=== PATIENT | female | born 1995 | race Caucasian/White ===

== ENCOUNTER → 2019-05-09 15:46 | Outpatient (BNVA) | payer SELFPAY | PROVIDERS: Family Provider Nurse Practitioner; PCP Nurse Practitioner; Visit Provider Nurse Practitioner | DX: Z30.40 Encounter for surveillance of contraceptives, unspecified (principal); N39.0 Urinary tract infection, site not specified; Z30.42 Encounter for surveillance of injectable contraceptive | CPT/HCPCS: 81003; 81025 ==

== ENCOUNTER → 2020-06-15 08:58 | Outpatient (BNVA) | payer SELFPAY | PROVIDERS: Family Provider Nurse Practitioner; PCP Nurse Practitioner; Visit Provider Registered Nurse | DX: Z30.42 Encounter for surveillance of injectable contraceptive (principal); R10.2 Pelvic and perineal pain | CPT/HCPCS: 81000; 81025 ==

== ENCOUNTER → 2022-07-29 09:18 | Outpatient (BNVA) | payer MEDICAID, SELFPAY | PROVIDERS: Family Provider Nurse Practitioner; PCP Nurse Practitioner; Visit Provider Nurse Practitioner Women's Health | DX: Z34.90 Encounter for supervision of normal pregnancy, unspecified, unspecified trimester (principal); R30.0 Dysuria | CPT/HCPCS: 81000; 87086 ==

== ENCOUNTER → 2022-08-10 14:37 | Outpatient (BNVA) | payer BC, SELFPAY | PROVIDERS: Family Provider Nurse Practitioner; PCP Nurse Practitioner; Visit Provider Obstetrics & Gynecology | DX: Z34.90 Encounter for supervision of normal pregnancy, unspecified, unspecified trimester (principal) | CPT/HCPCS: 76801 ==

== ENCOUNTER → 2022-08-12 14:09 | Outpatient (BNVA) | payer BC, MEDICAID, SELFPAY | PROVIDERS: Family Provider Nurse Practitioner; PCP Nurse Practitioner; Visit Provider Obstetrics & Gynecology | DX: Z34.90 Encounter for supervision of normal pregnancy, unspecified, unspecified trimester (principal) | CPT/HCPCS: 81000; 87086 ==

== ENCOUNTER → 2022-08-19 10:03 | Outpatient (BNVA) | payer BC, MEDICAID, SELFPAY | PROVIDERS: Family Provider Nurse Practitioner; Visit Provider Obstetrics & Gynecology | DX: Z34.00 Encounter for supervision of normal first pregnancy, unspecified trimester (principal); R10.2 Pelvic and perineal pain | CPT/HCPCS: 81000; 87086 ==

== ENCOUNTER → 2022-08-26 16:20 | Outpatient (BNVA) | payer BC, MEDICAID, SELFPAY | PROVIDERS: Family Provider Nurse Practitioner; Visit Provider Obstetrics & Gynecology | DX: Z34.90 Encounter for supervision of normal pregnancy, unspecified, unspecified trimester (principal) | CPT/HCPCS: 80307; 81000; 84443; 85027; 86592; 86762; 86803; 86850; 86900; 87086; 87340; 87491; 87591; 87661; 87806; 88175 ==

== ENCOUNTER → 2022-09-16 15:10 | Outpatient (BNVA) | payer BC, MEDICAID, SELFPAY | PROVIDERS: Family Provider Nurse Practitioner; Visit Provider Obstetrics & Gynecology | DX: Z34.92 Encounter for supervision of normal pregnancy, unspecified, second trimester (principal) | CPT/HCPCS: 81000; 87086 ==

== ENCOUNTER 2022-10-21 12:32 | Outpatient (CLI) | payer BC, MEDICAID, SELFPAY ==
--- NOTE | 2022-10-21 12:45 | US_ITS ---
WS: [email or web address] OBSTETRICAL ULTRASOUND COMPLETE HISTORY: Z34.90 - Encounter for supervision of normal , u... COMPARISON: 08/10/2022 Single intrauterine gestation in Cephalic presentation. Cervix is Closed and normal length. Cervical length is 3.6 cm. Normal amount of amniotic fluid surrounds the fetus. Placenta: Posterior, no previa or abruption. Placenta grade 1 Heart: 147 BPM. Poor evaluation of 4 chambers. Inadequate evaluation of the outflow tracts. Anatomy: Intracranial structures and spine are normal. kidneys, stomach and urinary bladd er are unremarkable. Abdominal wall, three-vessel cord and cord insertion site are normal. 4 extremities are present. profile: Unremarkable. Gender: Female measurements: BPD = 4.8 cm = 20w4d; 55th percentile HC = 18.3 cm = 20w4d; 51st percentile AC = 15.3 cm = 20w4d; 47th percentile FL = 3.4 cm = 20w5d; 54th percentile EFW: 367 g. Biometry is internally concordant. AGA by ultrasound: 20w4d ANATOLIY by ultrasound: 03/06/2023 Measurements are internally concordant. Normal growth since the prior ultrasound. US/US OB >= 14 weeks fetus [id number] IMPRESSION: 1. Single intrauterine gestation of 20w4d with an ANATOLIY of 03/06/2023. Appropria te growth since the prior ultrasound. 2. With the exception of the heart the anatomy is normal. Recommend reevaluati on of the heart to include 4 chambers and outflow tracts.
== END 2022-10-21 12:33 | disposition home or self-care (01) ==
PROVIDERS: Visit Provider Obstetrics & Gynecology
DX: Z34.92 Encounter for supervision of normal pregnancy, unspecified, second trimester (principal)
CPT/HCPCS: 76805

== ENCOUNTER 2022-12-23 13:20 | Outpatient (CLI) | payer BC, MEDICAID, SELFPAY ==
--- NOTE | 2022-12-23 14:08 | US_ITS ---
WS: [id number] ULTRASOUND OB FOCUSED HISTORY: Reevaluate four-chamber heart and outflow tracts. COMPARISON: 10/21/2022 Single intrauterine gestation in vertex position. heart rate at 141 BPM. Normal appearance of the four-chamber heart. Normal situs and axis. LVOT and RVOT are better seen on today's examination. Multiple images were obtained. In totality the outflow tracts appear normal. IMPRESSION: Normal reevaluation of four-chamber heart and outflow tracts.
== END 2022-12-23 13:21 | disposition home or self-care (01) ==
LOC: RAD 13:22
PROVIDERS: PCP Family Medicine; Visit Provider Family Medicine
DX: Z34.02 Encounter for supervision of normal first pregnancy, second trimester (principal)
CPT/HCPCS: 76816

== ENCOUNTER 2023-01-27 13:48 | Outpatient (CLI) | payer BC, MEDICAID, SELFPAY ==
--- NOTE | 2023-01-27 13:57 | US_ITS ---
WS: [id number] LIMITED OBSTETRICAL ULTRASOUND HISTORY: GESTATIONAL DIABETES COMPARISON: 12/23/2022, 08/10/2022 Presentation: Vertex Cervix: Closed and normal length. Placenta: Posterior, no previa. Grade: 1 HEART: FHR of 157 BPM. measurements: BPD = 8.4 cm = 34w0d; 36% HC = 30.6 cm = 34w1d; 12% AC = 28.7 cm = 32w5d; 11% FL = 6.5 cm = 33w4d; 21% DESMOND: 10.7 cm EFW: 2146 g; 36% AGA by ultrasound: 33w4d ANATOLIY by ultrasound: 03/13/2023 Fetus is measuring nearly 2 weeks smaller in size than expected based upon the first trimester ultras ound. The abdominal circumference is also at the 11th percentile. BPD is at the 36 percentile. As com pared to the prior ultrasound from 10/21/2022 the biometry percentiles are trending low. IMPRESSION: 1. Single intrauterine gestation of 33 weeks 4 days with an EDC of 03/13/2023. 2. Fetus is measuring just under 2 weeks smaller by biometry as expected according to the first trim ana ultrasound. 3. Biometry measurements are trending low as compared to the prior ultrasound of 10/21/2022. Abdominal circumference at the 11th percentile. Early changes of restricted growth are suspected. 4. Estimated weight remains at the 36 percentile. 5. Normal amniotic fluid.
== END 2023-01-27 13:49 | disposition home or self-care (01) ==
LOC: RAD 13:48
PROVIDERS: PCP Family Medicine; Visit Provider Family Medicine
DX: O24.419 Gestational diabetes mellitus in pregnancy, unspecified control (principal); Z3A.33 33 weeks gestation of pregnancy
CPT/HCPCS: 76816

== ENCOUNTER 2023-02-13 09:15 | Outpatient (CLI) | payer BC, MEDICAID, SELFPAY ==
[2023-02-13] VITALS (7 sets, daily range): BP systolic 107–135; BP diastolic 68–84; PULSE 77–88; RESP 16; TEMP 35.8; BMI 28.7
--- NOTE | 2023-02-13 09:33 | US_ITS ---
WS: [email or web address] BIOPHYSICAL PROFILE AND LIMITED OB. HISTORY: vaginal bleeding COMPARISON: 01/27/2023 Presentation: Cephalic. Cervix: Closed and normal length. Placenta: Posterior and fundal. Grade: 2 HEART: FHR of 144BPM. profile: Parameters are as follows: Breathin Movement: 2 Tone: 2 Fluid volume: 2 Normal amniotic fluid index, 11.9 cm. IMPRESSION: 1. Biophysical profile score: 8/8. 2. Normal amniotic fluid volume. 3. Grade 2 placenta.
[2023-02-13 13:15] LABS: Bilirubin Urine Neg (Negative); Blood Urine 3+ (Negative); Glucose Urine UA Norm (Normal); Ketones Urine Negative (Negative); Nitrate Urine Negative (Negative); Protein Urine 1+ (Negative); Specific Gravity, Urine 1.005 (1.005-1.030); Urine Appearance Hazy (CLEAR); Urine Color Yellow (Yellow); Urobilinogen Urine Neg (Negative); pH Urine 7 (5-7)
[2023-02-13 13:16] LABS: Add Urine Culture? Yes; Add Urine Microscopic? YES; Bacteria Urine TRACE /hpf; Leukocyte Esterase Urine 1+ (Negative)
[2023-02-13 13:22] LABS: Squamous Epithelial Cell Urine 0-4 /hpf (0-5); WBC Urine 15-25 /hpf (0-5)
[2023-02-13 13:25] LABS: RBC Urine TOO NUMEROUS TO CNT /hpf (0-2)
== END 2023-02-13 13:39 | disposition home or self-care (01) ==
LOC: OPOB 09:20 → OBGYN 09:26
PROVIDERS: PCP Family Medicine; Visit Provider Family Medicine
DX: O46.90 Antepartum hemorrhage, unspecified, unspecified trimester (principal); Z3A.00 Weeks of gestation of pregnancy not specified
CPT/HCPCS: 59025; 76819; 81001; 87081; 87086; 99211

== ENCOUNTER 2023-02-18 13:30 | Inpatient (IN) | payer BC, MEDICAID, SELFPAY ==
[2023-02-18] VITALS (101 sets, daily range): BP systolic 102–140; BP diastolic 55–91; PULSE 57–98; RESP 15–18; TEMP 36.6–36.7; O2SAT 89–100; BMI 28.1
--- NOTE | 2023-02-18 12:32 | USR_ITS ---
PROCEDURE INFORMATION: Exam: US , Limited Exam date and time: 02/18/2023 1:17 PM Age: 27 years old Clinical indication: Other: Pain and bleeding; ; Additional info: Non reassuring fht TECHNIQUE: Imaging protocol: Real-time ultrasound of the maternal uterus with image documentation. Exam focused on the clinical indication. COMPARISON: US OB BPP NST [id number] 02/13/2023 10:01 AM FINDINGS: Gestation: Single live intrauterine gestation. heart rate: 122 bpm. presentation: Cephalic presentation. Placenta: Grade 3 placenta. Heterogeneously hypoechoic nonvascular retroplacental mass measuring up to 7 cm diameter suspicious for placental abruption and retroplacental hemorrhage. Amniotic fluid: A small volume of amniotic fluid is present. Amniotic fluid volume is not well evaluated. Amniotic fluid index: DESMOND is not measured. MATERNAL: Cervix: The cervix is obscured by posterior acoustic shadowing. US/US OB BPP NST [id number] IMPRESSION: 1. Suspect placental abruption. 2. Single live intrauterine gestation. Cephalic presentation.
[2023-02-18 13:41] LABS: Basophils # 0.1 10^3/uL (0.0-0.1); Basophils % 0.3 %; Eosinophils % 0.1 %; Hematocrit 37.8 % (36-47); Lymphocytes # 1.6 10^3/uL (0.8-4.8); Lymphocytes % 8.4 %; Mean Corpuscular HGB Conc 34.7 g/dL (30-55); Mean Corpuscular Hemoglobin 32.1 pg (27-33); Mean Corpuscular Volume 92.6 fl (85-98); Mean Platelet Volume 12.7 fL (7.4-10.4); Monocytes # 0.8 10^3/uL (0.2-0.9); Neutrophils # 16.42 10^3/uL (1.8-7.7); Neutrophils % 85.5 %; Nucleated Red Blood Cells % 0 %; Platelet Count 242 10^3/cmm (157-399); Red Blood Count 4.08 10^6/uL (3.85-5.65); Red Cell Distribution Width 13.2 % (12.1-15.1); White Blood Count 19.19 10^3/uL (3.29-11.43)
[2023-02-18] MEDS: ceFAZolin 2,000 MG in sodium chloride 0.9% (plus) 50 ML 100 MG IV (13:55)
[2023-02-18] MEDS: lactated ringers 1,000 ML 999 ML IV (13:55)
--- NOTE | 2023-02-18 14:01 | PM.OBGYHP ---
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 She reports good movement. Some intermittent vaginal spotting. Denies LOF. Family history significant for malignant hyperthermia. Present Details : 1 Para: 0 Labs Blood type OB HPI: B (+) positive Rubella: Immune RPR: Negative GBS: Negative HBsAG: Negative Review of Systems Const: Denies: fever(s) or chills Card: Denies: chest pain or palpitations Resp: Denies: dyspnea : Reports: vaginal bleeding Musc: Reports: back pain Medications/Allergies Home Medications Medication Instructions Recorded Confirmed Last Taken Type prenat.vits,juan,yuo-vdnc-bzbng 1 tab PO DAILY 07/29/22 02/13/23 02/12/23 22:00 History ondansetron HCl 4 mg tablet 4 mg PO Q6H #30 tabs 08/26/22 02/13/23 Unknown Rx promethazine 25 mg tablet 25 mg PO Q6H PRN nausea and 08/26/22 02/13/23 Unknown Rx vomiting #30 tabs cetirizine 10 mg tablet See Rx Instructions .Route 02/17/23 Unknown Rx .COMPLEX #30 tabs Allergies Allergy/AdvReac Type Severity Reaction Status Date / Time naproxen AdvReac Intermediate ADR-Abdominal Verified 09/16/22 15:03 Pain 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: Medical History No pertinent past medical history neghx: htn,dm,thyroid,dvt/pe PCP: none Surgical History History of dental surgery History of tonsillectomy and adenoidectomy Family History Grandmother Thyroid condition maternal Heart disease maternal Denies family history of Colon cancer Ovarian cancer Diabetes Hyperlipidemia Breast cancer Hypertension Uterine cancer Stroke Supplemental PFSH Information: Family history significant for history of malignant hyperthermia History History History 1 Term 0 Miscarriages/Ectopic Living Children Care ANATOLIY Calculator Estimated Delivery Date Method Current WG Current Estimate 03/07/23 LMP (Uncertain) 37w 4d Other Estimates 03/01/23 Ultrasound #1 38w 3d Specific Issues/Plans NICOTINE USE Vitals/I&O/Wt Last Vital Signs Pulse 83 02/18/23 12:45 Resp 16 02/18/23 12:32 BP 120/69 02/18/23 12:45 Weight last 48 hrs Weight 149 lb Physical Exam Const: COMMON NORMALS: healthy appearing and alert OTHER: in pain with contractions Resp: COMMON NORMALS: normal respiratory effort and clear to auscultation bilaterally Cardio: COMMON NORMALS: regular rate, regular rhythm, S1 normal heart sound present and S2 normal heart sound present Extremity: OTHER: No LE edema Data 02/18/23 12:50 Results Labs OB ([facility]): Obstetrics US 01/27/23 Obstetrics US/Biophysical Profile 02/18/23 Blood Type B Positive 08/26/22 Antibody Screen Negative 08/26/22 Hct 37.8 % (36-47) 02/18/23 Hgb 13.10 g/dL (11.27-16.99) 02/18/23 Rho(D) Type Positive 08/26/22 Plt Count 242 10^3/cmm (157-399) 02/18/23 Hep Bs Antigen Non-reactive (Nonreactive) 08/26/22 Hepatitis C Antibody Non-reactive (Nonreactive) 08/26/22 Rubella IgG Antibody 26.7 IU/mL (0.0-10.0) H 08/26/22 RPR Nonreactive (Nonreactive) 08/26/22 HIV 1&2 Ab & HIV 1 Ag Non-reactive (Non-Reactiv) 08/26/22 TSH 1.88 uIU/mL (0.27-4.20) 08/26/22 Cystic Fibrosis Screen Negative 08/26/22 HCG, Qual Negative (Negative) 06/15/20 Urine Opiates Screen Negative ng/mL (Negative) 08/26/22 Ur Barbiturates Screen Negative ng/mL (Negative) 08/26/22 Ur Phencyclidine Scrn Negative ng/mL (Negative) 08/26/22 Ur Amphetamines Screen Negative ng/mL (Negative) 08/26/22 U Benzodiazepines Scrn Negative ng/mL (Negative) 08/26/22 Urine Cocaine Screen Negative ng/mL (Negative) 08/26/22 U Marijuana (THC) Screen Negative ng/mL (Negative) 08/26/22 Micro Urine Specimen 02/13/23 Pap Smear Interpret See note 08/26/22 A&P Assessment and plan (1) Term : (2) Placental abruption: (3) Gestational diabetes mellitus: Plan 27yo at 37w4d presenting with suspected placental abruption. Admit patient. FHT intermittent category II. With suspected significant placental abruption and category II FHT I have contacted backup Dr. eRyna for evaluation for primary . CBC, Type and Screen. Attestations Medical Necessity Statement*: [facility] Hospitalist [facility] hospital stay will require greater than 2 midnights for delivery and care. Coding Level of Care Code Acute Code for Chg Fwd Diagnoses Term Z34.90 Placental abruption O45.90 Gestational diabetes mellitus O24.419
[2023-02-18] MEDS: citric acid-sodium citrate 30 mL UDC PO (14:06)
[2023-02-18] MEDS: metoclopramide 5 mg/mL SDV 2 mL 10 MG IV (14:06)
[2023-02-18] MEDS: famotidine 20 mg/2 mL INJ IVP (14:06)
--- NOTE | 2023-02-18 14:20 | P.CONIM_ITS ---
Providers/Reason For Consult 2 Consulting Physician/Specialty*: Family Practice/OB Reason for Consult*: Non-reassuring heart tones with need for primary low-transverse section Attending Physician: Jessica Teixeira DO Primary Care Provider: Jessica Teixeira DO History of Present Illness History of Present Illness Mell Barrientos is a 27 year old GP0 at 37.5 weeks gestation by 11-week ultrasound with uncertain LMP. Her was complicated by gestational diabetes, IUGR on last ultrasound, smoker. The patient presented to labor and delivery today due to increasing contractions and low back pain with some mild spotting. The patient had an ultrasound done that was suspicious for placental abruption. heart tones were nonreassuring with intermittent decelerations. For this reason I was contacted for consultation for section. The patient denies any chest pains, shortness of breath, nausea, vomiting. She denies any leakage of fluid. Medications/Allergies Home Medications Medication Instructions Recorded Confirmed Last Taken Type prenat.vits,juan,whn-hafa-icpzg 1 tab PO DAILY 07/29/22 02/13/23 02/12/23 22:00 History ondansetron HCl 4 mg tablet 4 mg PO Q6H #30 tabs 08/26/22 02/13/23 Unknown Rx promethazine 25 mg tablet 25 mg PO Q6H PRN nausea and 08/26/22 02/13/23 Unknown Rx vomiting #30 tabs cetirizine 10 mg tablet See Rx Instructions .Route 02/17/23 Unknown Rx .COMPLEX #30 tabs Allergies Allergy/AdvReac Type Severity Reaction Status Date / Time naproxen AdvReac Intermediate ADR-Abdominal Verified 09/16/22 15:03 Pain Current Medications Generic Name Dose Route Start Last Admin Trade Name Freq PRN Reason Stop Dose Admin Lactated Ringer's 1,000 mls @ 999 mls/hr 02/18/23 13:00 02/18/23 13:55 Lactated Ringers IV 999 mls/hr .Q1H1M SHAHLA Administration PFSH Acute 2 PFSH: Medical History No pertinent past medical history neghx: htn,dm,thyroid,dvt/pe PCP: none Surgical History History of tonsillectomy and adenoidectomy History of dental surgery Family History Grandmother Thyroid disease maternal Heart disease maternal Denies family history of Colon cancer Ovarian cancer Diabetes Hyperlipidemia Breast cancer Hypertension Uterine cancer Stroke Social History (Updated 02/18/23 @ 16:02 by Yimi Reyna MD) Smoking and tobacco/nicotine status: current every day tobacco/nicotine user Female Reproductive History: : 1 Vitals/I&O/Wt Last Vital Signs Pulse 86 02/18/23 14:02 Resp 16 02/18/23 12:32 BP 140/91 02/18/23 14:02 Weight last 48 hrs Weight 149 lb Physical Exam 2 Narrative: General: Alert and oriented x3 Mouth: Mucous membranes moist, pharynx non-erythematous Cardiac: Regular rate and rhythm without murmurs Lungs: Clear to auscultation bilaterally without wheezes, crackles or rhonchi Abdomen: Soft, mild tenderness diffusely, fundus small for gestational age Extremities: Trace edema in the bilateral lower extremities Data 02/18/23 12:50 A&P Assessment and plan (1) Placental abruption: Clinically the patient has findings concerning for placental abruption. Her ultrasound is highly consistent for this. We do not have the official radiology report back yet, however with the nonreassuring heart tones I am in agreement that we should proceed with a primary low-transverse section as she is only 2 cm dilated and primigravida. I would be concerned that there could be a significant risk for proceeding with vaginal delivery based on these findings. This was discussed with the patient and her significant other and they are in agreement with proceeding with a primary low-transverse section. All questions were answered. Qualifiers: Trimester: third trimester Qualified Code(s): O45.93 - Premature separation of placenta, unspecified, third trimester (2) Gestational diabetes mellitus: Qualifiers: Gestational diabetes mellitus control: diet-controlled Trimester: third trimester Qualified Code(s): O24.410 - Gestational diabetes mellitus in , diet controlled (3) Tobacco use in : Plan Please see Dr. Teixeira's note for full details. Coding Level of Care Code Acute Code for Chg Fwd Diagnoses Placental abruption in third trimester O45.93 Trimester: third trimester Diet controlled gestational diabetes mellitus (GDM) in third trimester O24.410 Gestational diabetes mellitus control: diet-controlled Trimester: third trimester Tobacco use in O99.330
--- NOTE | 2023-02-18 16:06 | PM.OP ---
Operative Report Date of procedure: February 18, 2023 Pre-op diagnosis: 1. Intrauterine at 37.5 weeks gestation by LMP. 2. Gestational diabetes diet controlled 3. Borderline IUGR 4. Clinical suspicion for placental abruption with nonreassuring heart tones Post-op diagnosis: 1. Intrauterine status post primary low-transverse section at 37.5 weeks gestation by LMP. 2. Gestational diabetes diet controlled 3. Small for gestational age infant 4. Placental abruption based on intraoperative findings 5. Smoker 6. Delivery of infant female weighing 4 pounds 2 ounces with Apgars of 8 and 9 Post-op findings: Couvelaire uterus with blood clots covering approximately 35 to 40% of the placental surface and blood noted under the membrane of the chorionic plate. Blood-stained amniotic fluid noted. Small for gestational age infant Intact placenta Procedure done: Primary low transverse section Specimens removed/disposition: Placenta sent to pathology Surgeon: Yimi Reyna MD Software Systems Engineer: Dr Jessica Teixeira Estimated blood loss (mL): 450 Complications: None Brief History: Mell Brarientos is a 27 year old G1 now P1 status post primary low-transverse section at 37.5 weeks gestation by 11-week ultrasound with uncertain LMP. Her was complicated by gestational diabetes, IUGR on last ultrasound, smoker. The patient presented to labor and delivery today due to increasing contractions and low back pain with some mild spotting. The patient had an ultrasound done that was highly suspicious for placental abruption. No official radiologic report was back yet but heart tones were nonreassuring with intermittent decelerations. For this reason I was contacted for consultation for section. I discussed the risk and benefits with the patient and she agreed to proceed with a primary low-transverse section due to the above. Procedure: After informed consent was obtained, the patient was taken to the operating room and the patient was prepped and draped in a normal sterile fashion in the dorsal supine position.? A spinal was placed and adequate anesthesia was obtained.? At 1438 on 02/18/2023 a Pfannenstiel skin incision was made and carried through to the underlying layer of fascia using a scalpel.? The fascial incision was then extended laterally using curved Mayos.? The fascia was then grasped with Ceci clamps and the underlying rectus muscles were dissected off taking care to avoid injury to the underlying tissues.? The peritoneum was entered bluntly with one digit.? It was then bluntly.? The bladder blade was placed and the vesicouterine peritoneum was well below the lower uterine segment of the uterus.? The uterine incision was made in the lower uterine segment in a transverse fashion with the scalpel at 1442.? The amniotic membrane was entered bluntly and a moderate amount of blood stained fluid was noted.? Uterine pressure was placed and the infant's head delivered without complication at 1442 on 02/18/2023.? There was no nuchal cord.? The mouth and nose were suctioned.? The rest of the infant delivered without difficulty.? The took a breath immediately upon delivery.? The cord was clamped and cut and the was handed to the awaiting pediatric nurses as well as Dr. Campbell.? The placenta was then manually expressed.? Multiple large clots were noted upon delivery of the placenta. Couvelaire uterus was noted as well. The uterus was exteriorized from the abdomen.? A wet lap was used to clear the uterus of clots and debris.? The bladder blade was reinserted and the uterine incision was closed using 0 chromic in a running locking fashion.? The uterus was noted to be firm.? A second layer of the same suture was used in the same manner.? Excellent hemostasis was obtained. Next the posterior cul-de-sac was inspected and was cleared of any blood. The gutters were cleared of any further clots and debris and the uterine incision was again inspected and hemostasis was noted.? The subfascial tissue was inspected for hemostasis and the peritoneum was re-approximated using 2-0 plain in a running fashion.? The fascia was then re-approximated using 0 Vicryl in a running fashion.? The subcutaneous tissue was inspected for hemostasis.? Israel's fascia was then re-approximated using 3-0 plain in a running fashion.? Good hemostasis was noted.? The subcutaneous tissue was then re-approximated using a subcuticular stitch.? The patient tolerated the procedure well and was recovered in stable condition.? Estimated blood loss was 450 mL. Urine in the Gallegos catheter was clear. The placenta was evaluated after the delivery more closely and noted to have blood clots that covered approximately 35 to 40% of the surface of the placenta. The placenta was noted to be intact otherwise. The umbilical cord was very small. The placenta will be sent for pathology. The patient was taken to recovery in good condition.
[2023-02-18 16:54] LABS: Glucose Point of Care 95 mg/dL (70-110)
[2023-02-18] MEDS: ketorolac 30 mg/mL INJ IVP (21:30)
[2023-02-19 00:45] VITALS: BP 115/71; PULSE 80
[2023-02-19] MEDS: ketorolac 30 mg/mL INJ IVP (03:46)
[2023-02-19 04:51] LABS: Hematocrit 33.2 % (36-47); Mean Corpuscular HGB Conc 34.9 g/dL (30-55); Mean Corpuscular Hemoglobin 32.3 pg (27-33); Mean Corpuscular Volume 92.5 fl (85-98); Mean Platelet Volume 11.7 fL (7.4-10.4); Platelet Count 199 10^3/cmm (157-399); Red Blood Count 3.59 10^6/uL (3.85-5.65); Red Cell Distribution Width 13.3 % (12.1-15.1); White Blood Count 14.76 10^3/uL (3.29-11.43)
[2023-02-19 05:37] VITALS: BP 114/57; PULSE 83
[2023-02-19] MEDS: ferrous sulfate EC 325 mg Tablet PO (09:19)
[2023-02-19] MEDS: ibuprofen 800 mg tablet PO ×3 (09:19→20:17)
[2023-02-19] MEDS: prenatal vitamin Capsule 1 CAP PO (09:19)
[2023-02-19] MEDS: docusate sodium 100 mg Capsule PO ×2 (09:19→20:17)
--- NOTE | 2023-02-19 09:53 | P.PN_ITS ---
Subjective 2 Subjective: The patient is feeling well today. She is ambulating, voiding, passing gas and tolerating food by mouth. Bleeding is decreasing well. Her pain is under good control. She has no concerns at this time. Vitals/I&O/Wt Last Vital Signs Temp 97.9 F 02/18/23 16:20 Pulse 83 02/19/23 05:37 Resp 15 02/18/23 16:20 BP 114/57 02/19/23 05:37 Pulse Ox 96 02/18/23 21:26 O2 Del Method Room Air 02/18/23 16:20 02/18/23 02/19/23 02/19/23 22:59 06:59 14:59 Intake Total 1999 Output Total 1150 / 1150 900 / 2050 Balance 850 / 850 -900 / -50 Weight last 48 hrs Weight 149 lb Physical Exam 2 Narrative: General: Alert and oriented x3 Cardiac: Regular rate and rhythm without murmurs Lungs: Clear to auscultation bilaterally without wheezes, crackles or rhonchi Abdomen: Soft, moderate tenderness over uterus. The uterus is firm and 2 cm below the umbilicus. Bandage over incision is clean and dry without signs of significant bleeding. Extremities: Trace edema in the bilateral lower extremities Urinary Catheter Management: Gallegos: Cath Placed During This Visit: yes, but has since been removed by the nurse Reason for Continuing Indwelling Catheter: Perioperative Use in Selected Surgeries Urinary Catheter Date of Insertion: 02/18/23 Urinary Catheter Time of Insertion: 14:30 Date Urinary Catheter Removed: 02/19/23 Time Urinary Catheter Discontinued: 04:36 Data 02/19/23 04:35 A&P Assessment and plan (1) Delivery by section: The patient is doing well status post section. We will have her continue with routine care at this time. Routine discharge instructions and care instructions were discussed. All questions were answered. If she continues to do well, we will plan for discharge home tomorrow. (2) Gestational diabetes mellitus: The patient will need to have a 2-hour glucose tolerance test at [address] Teixeira. Qualifiers: Gestational diabetes mellitus control: diet-controlled Trimester: third trimester Qualified Code(s): O24.410 - Gestational diabetes mellitus in , diet controlled (3) Placental abruption: Qualifiers: Trimester: third trimester Qualified Code(s): O45.93 - Premature separation of placenta, unspecified, third trimester (4) Tobacco use in : The patient was advised to quit smoking. Attestations 2 Medical Necessity Statement*: The patient will be here for greater than 2 midnights due to routine intrapartum and management after section. Coding Level of Care Code Acute Code for Chg Fwd Diagnoses Delivery by section Diet controlled gestational diabetes mellitus (GDM) in third trimester O24.410 Gestational diabetes mellitus control: diet-controlled Trimester: third trimester Placental abruption in third trimester O45.93 Trimester: third trimester Tobacco use in O99.330
[2023-02-19 10:28] VITALS: BP 129/77; PULSE 87
[2023-02-19 16:48] VITALS: BP 133/78; PULSE 87
[2023-02-19 16:50] VITALS: TEMP 36.4
--- NOTE | 2023-02-19 21:04 | ANE.PACU2 ---
Inpatient post-anesthesia follow up: Airway intact: Yes Vital signs: Temperature 97.5 F Pulse Rate 87 Respiratory Rate 15 Blood Pressure 133/78 Pulse Oximetry 96 Oxygen Delivery Me thod Room Air Oxygen Flow Rate Fraction of Inspir ed Oxygen Hydration adequate: Yes Nausea and vomiting: No Pain level: 1 Mental status: Baseline
[2023-02-19 21:12] VITALS: BP 131/81; PULSE 97
[2023-02-20 02:48] VITALS: RESP 16
[2023-02-20] MEDS: oxyCODONE-APAP 5-325 mg Tablet PO (02:48)
[2023-02-20 05:20] VITALS: BP 128/90; PULSE 92
--- NOTE | 2023-02-20 07:53 | PM.DCS ---
Discharge Providers Date of Admission: 02/18/23 13:30 Date of Discharge: February 20, 2023 Attending Provider at Admission: Jessica Teixeira DO Attending Provider at Discharge: Jessica Teixeira DO Primary Care Provider: Jessica Teixeira DO Diagnoses at Discharge Discharge Diagnosis (1) Delivery by section: Status: Acute Permanent problem details: Primary low-transverse section -02/18/2023 -Dr. Reyna -done for placental abruption (2) Gestational diabetes mellitus: Status: Resolved Qualifiers: Gestational diabetes mellitus control: diet-controlled Trimester: third trimester Qualified Code(s): O24.410 - Gestational diabetes mellitus in , diet controlled (3) Placental abruption: Status: Inactive Qualifiers: Trimester: third trimester Qualified Code(s): O45.93 - Premature separation of placenta, unspecified, third trimester (4) Tobacco use in : Status: Acute Other Information Additional DC diagnoses/information: 1. Intrauterine status post primary low-transverse section at 37.5 weeks gestation by LMP. 2. Gestational diabetes diet controlled 3. Small for gestational age 4. Placental abruption based on pre-op and intra-operative findings 5. Smoker 6. Delivery of female weighing 4 pounds 2 ounces with Apgars of 8 and 9 Reason for Visit Reason for Visit: contractions Brief History: Mell Barrientos is a 27 year old G1 now P1 status post primary low-transverse section at 37.5 weeks gestation by 11-week ultrasound with uncertain LMP. Her was complicated by gestational diabetes, IUGR on last ultrasound, smoker. The patient presented to labor and delivery on the afternoon of day of admission due to increasing contractions and low back pain with some mild spotting. The patient had an ultrasound done that was highly suspicious for placental abruption. No official radiologic report was back yet but heart tones were non-reassuring with intermittent decelerations. For this reason I was contacted for consultation for section. I discussed the risk and benefits with the patient and she agreed to proceed with a primary low-transverse section due to the above. Hospital Course Hospital Course The patient had a primary low-transverse section without complications. Her findings were consistent with a significant placental abruption. Postoperatively the patient has done very well. Her bleeding has been very little, her pain is well-controlled, she is ambulating, voiding, passing gas and tolerating food by mouth. Routine discharge instructions were discussed and we will plan to follow-up with her at 2 weeks in clinic. The patient will follow-up with her primary eyelet operator, Dr. Jessica Teixeira at 6 weeks . All questions answered. The patient is in agreement with discharge home at this time. Physical Exam Narrative: General: Alert and oriented x3 Cardiac: Regular rate and rhythm without murmurs Lungs: Clear to auscultation bilaterally without wheezes, crackles or rhonchi Abdomen: Soft, moderate tenderness over uterus. The uterus is firm and 2 cm below the umbilicus. Incision is clean and dry without signs of infection or dehiscence. Extremities: +1 edema in the bilateral lower extremities Discharge Data Studies Completed and Pending Completed Studies During Hospitalization Category Date Time Status US OB BPP wo NST 74377 Stat Ultrasound 02/18/23 12:32 Completed Pending at discharge Category Date Time Status Pathology: Surgical [PTH] Routine Pth 02/18/23 16:17 Ordered Radiology Impressions Obstetrics US/Biophysical Profile 02/18/23 12:32 IMPRESSION: 1. Suspect placental abruption. 2. Single live intrauterine gestation. Cephalic presentation. ADDENDUM: 02/18/23 9120 THIS REPORT CONTAINS FINDINGS THAT MAY BE CRITICAL TO PATIENT CARE. The referring physician could not be reached by telephone. The findings were verbally communicated via telephone conference with CRISTELA Briceño at 2:48 PM [employer]ING [employer] ENGRAVER on 02/18/2023. The findings were acknowledged and understood, and will be relayed to the referring physician. Laboratory Results WBC 14.76 10^3/uL (3.29-11.43) H 02/19/23 04:35 RBC 3.59 10^6/uL (3.85-5.65) L 02/19/23 04:35 Hgb 11.60 g/dL (11.27-16.99) 02/19/23 04:35 Hct 33.2 % (36-47) L 02/19/23 04:35 MCV 92.5 fl (85-98) 02/19/23 04:35 MCH 32.3 pg (27-33) 02/19/23 04:35 MCHC 34.9 g/dL (30-55) 02/19/23 04:35 RDW 13.3 % (12.1-15.1) 02/19/23 04:35 Plt Count 199 10^3/cmm (157-399) 02/19/23 04:35 MPV 11.7 fL (7.4-10.4) H 02/19/23 04:35 Neut % (Auto) 85.5 % 02/18/23 12:50 Lymph % (Auto) 8.4 % 02/18/23 12:50 [place] % (Auto) 4.0 % 02/18/23 12:50 Eos % (Auto) 0.1 % 02/18/23 12:50 Baso % (Auto) 0.3 % 02/18/23 12:50 Neut # (Auto) 16.42 10^3/uL (1.8-7.7) H 02/18/23 12:50 Lymph # (Auto) 1.6 10^3/uL (0.8-4.8) 02/18/23 12:50 [place] # (Auto) 0.8 10^3/uL (0.2-0.9) 02/18/23 12:50 Eos # (Auto) 0.0 10^3/uL (0.0-0.8) 02/18/23 12:50 Baso # (Auto) 0.1 10^3/uL (0.0-0.1) 02/18/23 12:50 Nucleated RBC % (auto) 0 % 02/18/23 12:50 Nucleated RBCs # 0.0 /100WBC 02/18/23 12:50 POC Glucose 95 mg/dL (70-110) 02/18/23 15:29 Blood Type B Positive 02/18/23 12:50 Rho(D) Type Rh positive 02/18/23 12:50 Antibody Screen Negative 02/18/23 12:50 Vitals Last Vital Signs Temp 97.5 F L 02/19/23 16:50 Pulse 92 02/20/23 05:20 Resp 16 02/20/23 02:48 BP 128/90 02/20/23 05:20 Pulse Ox 96 02/18/23 21:26 O2 Del Method Room Air 02/18/23 16:20 Discharge Plan Discharge Patient Disposition: Home Condition: Good Prescriptions: New ibuprofen 800 mg Tablet 800 mg PO TID Qty: 60 0RF -U 106.5-1 mg Capsule 1 cap PO BREAKFAST Qty: 30 2RF oxycodone-acetaminophen 5-325 mg Tablet 1 - 2 tab PO Q6H PRN (Reason: Moderate To Severe Pain) Qty: 20 0RF Continued ondansetron HCl 4 mg tablet 4 mg PO Q6H Qty: 30 2RF promethazine 25 mg tablet 25 mg PO Q6H PRN (Reason: nausea and vomiting) Qty: 30 2RF cetirizine 10 mg tablet See Rx Instructions .ROUTE .COMPLEX Qty: 30 0RF Dose Instruction: TAKE 1 TABLET BY MOUTH DAILY Rx Instructions: TAKE 1 TABLET BY MOUTH DAILY Discontinued prenat.vits,juan,yfu-eofn-inozz Tablet 1 tab PO DAILY Discharge Orders: Discharge Order (Routine); Ordered 02/20/23 Ordered By: Yimi Reyna Referrals: Yimi Reyna MD [Physician] - 03/06/23 9:40 am Discharge Diet: Regular Discharge Activity: Limit activity as instructed Patient Instructions: Depression (DC), Preeclampsia and Eclampsia After Delivery (GEN), (DC), Hemorrhage (DC), OB Discharge Report, OB Food/Drug Interaction Guide, OB Care at Home, Opioid Safety, OB Home Care, Abnormal Bleeding Activity Restrictions/Additional Instructions: Do not lift anything heavier than your in the car seat for the first 3 weeks, then can gradually increase. Full lifting at 6 weeks. No driving for 2 weeks. If you have any concern for infection in your incision site, please contact Dr. Reyna's office right away for an appointment. Nothing per vagina for 6 weeks. I would recommend showers instead of baths for the first 6 weeks. Discharge Attestations Time Spent in Discharge Care*: less than 30 min Quality Metrics Clinical Quality Measures [ No reported AMI, CVA or VTE this stay] Coding Level of Care Code Acute Code for Chg Fwd Diagnoses Delivery by section Diet controlled gestational diabetes mellitus (GDM) in third trimester O24.410 Gestational diabetes mellitus control: diet-controlled Trimester: third trimester Placental abruption in third trimester O45.93 Trimester: third trimester Tobacco use in O99.330
[2023-02-20] MEDS: ibuprofen 800 mg tablet PO ×2 (08:15→15:01)
[2023-02-20] MEDS: docusate sodium 100 mg Capsule PO (08:15)
[2023-02-20] MEDS: ferrous sulfate EC 325 mg Tablet PO (08:15)
[2023-02-20] MEDS: prenatal vitamin Capsule 1 CAP PO (08:15)
[2023-02-20 10:30] VITALS: BP 142/80; PULSE 95
[2023-02-20 16:25] VITALS: BP 137/76; PULSE 92; RESP 15; TEMP 36.4
[2023-02-21 19:17] LABS: Glucose Point of Care 38 mg/dL (70-110)
== END 2023-02-20 16:30 | disposition home or self-care (01) | DRG 788 ==
LOC: OPOB 15:06 → OBGYN 15:06
PROVIDERS: Family Medicine; Admitting Provider Family Medicine; PCP Family Medicine; Visit Provider Family Medicine
PROC: 10D00Z1 Extraction of Products of Conception, Low, Open Approach (ICD-10-PCS; CPT 59514; principal; 2023-02-18 14:20)
DX: O45.8X3 Other premature separation of placenta, third trimester (principal); Z3A.37 37 weeks gestation of pregnancy; Z37.0 Single live birth; O24.420 Gestational diabetes mellitus in childbirth, diet controlled; O76 Abnormality in fetal heart rate and rhythm complicating labor and delivery; O36.5930 Maternal care for other known or suspected poor fetal growth, third trimester, not applicable or unspecified; O99.334 Smoking (tobacco) complicating childbirth; F17.210 Nicotine dependence, cigarettes, uncomplicated
CPT/HCPCS: 36415; 36416; 51702; 59025; 59409; 76819; 82962; 85025; 85027; 86850; 86900; 88307; 96374; 96376; 99211; J0690; J1885; J2274; J2765; J3010; J3490; J7030; J7120

== ENCOUNTER → 2023-06-26 14:35 | Outpatient (BNVA) | payer BC, MEDICAID, SELFPAY | PROVIDERS: PCP Nurse Practitioner Family; Visit Provider Nurse Practitioner Family | DX: R10.9 Unspecified abdominal pain (principal); Z30.42 Encounter for surveillance of injectable contraceptive | CPT/HCPCS: 81000 ==

== ENCOUNTER → 2023-11-17 15:56 | Outpatient (BNVA) | payer BC, MEDICAID, SELFPAY | PROVIDERS: PCP Nurse Practitioner Family; Visit Provider Nurse Practitioner Family | DX: Z30.42 Encounter for surveillance of injectable contraceptive (principal); R10.9 Unspecified abdominal pain; G89.18 Other acute postprocedural pain | CPT/HCPCS: 74018; 81000; 81025 ==

== ENCOUNTER → 2023-12-28 10:24 | Outpatient (BNVA) | payer BC, MEDICAID, SELFPAY | PROVIDERS: PCP Nurse Practitioner Family; Visit Provider Nurse Practitioner Family | DX: E16.2 Hypoglycemia, unspecified (principal); R53.83 Other fatigue | CPT/HCPCS: 80053; 80061; 81003; 82306; 83036; 84443; 85025 ==

== ENCOUNTER → 2024-06-14 15:30 | Outpatient (BNVA) | payer BC, MEDICAID, SELFPAY | PROVIDERS: PCP Nurse Practitioner Family; Visit Provider Nurse Practitioner Family | DX: Z30.42 Encounter for surveillance of injectable contraceptive (principal) | CPT/HCPCS: 81025 ==

== ENCOUNTER → 2024-07-15 17:13 | Outpatient (BNVA) | payer MEDICAID, SELFPAY | PROVIDERS: PCP Nurse Practitioner Family; Visit Provider Nurse Practitioner Family | DX: J22 Unspecified acute lower respiratory infection (principal); L30.9 Dermatitis, unspecified; T78.40XA Allergy, unspecified, initial encounter; Z79.899 Other long term (current) drug therapy; Z13.6 Encounter for screening for cardiovascular disorders | CPT/HCPCS: 80053; 80061; 83036; 84443; 85025 ==